=== PATIENT | male | born 1995 | race Caucasian/White ===

== ENCOUNTER 2021-03-09 10:16 | Emergency (ER) | payer BC, OTHER ==
--- NOTE | 2021-03-09 11:13 | CR ---
Right elbow: 3 views of the right elbow were obtained. Comparison: No prior elbow study is available. No joint effusion is seen. Joint spaces are preserved. No fracture, dislocation or other bony abnormality is appreciated. Impression: 1. Nothing acute is seen on 3 view right elbow study. Diagnostic code #1
--- NOTE | 2021-03-09 11:13 | EDM.PDOC ---
ED HPI GENERAL MEDICAL PROBLEM - General Chief Complaint: Upper Extremity Injury/Pain Stated Complaint: R ARM INJURY Time Seen by Provider: 03/09/21 11:00 - History of Present Illness INITIAL COMMENTS - FREE TEXT/NARRATIVE: 25-year-old male presents the emergency room after sustaining a right arm injury. Patient was working on her already and a hydraulic arm caught his arm and put significant pressure on it until the hydraulics could be turned off. The patient has some abrasions associated with this he is unsure when his last tetanus shot was given his age I will assume he is due. Patient denies any significant past medical history. Patient has some discomfort in the affected extremity he has no numbness or tingling in the arm no significant deep pain. Patient denies any other injury associated with this most unfortunate event. Patient denies any significant past medical history. Right Upper Arm Pain Score (Numeric/FACES): 9 - Related Data Allergies Allergy/AdvReac Type Severity Reaction Status Date / Time No Known Allergies Allergy Verified 03/09/21 10:24 Home Meds: Home Meds Albuterol [Proventil HFA] 1 puff INH QID PRN 03/09/21 [History] Past Medical History Respiratory History: Reports: Asthma Endocrine/Metabolic History: Reports: Obesity/BMI 30+ Social & Family History - Tobacco Use Tobacco Use Status *Q: Never Tobacco User - Caffeine Use Caffeine Use: Reports: None - Recreational Drug Use Recreational Drug Use: No Review of Systems - Review of Systems Review Of Systems: See Below Constitutional: Reports: No Symptoms Respiratory: Reports: No Symptoms Cardiovascular: Reports: No Symptoms GI/Abdominal: Reports: No Symptoms ED EXAM, GENERAL - Physical Exam Exam: See Below Exam Limited By: No Limitations General Appearance: Alert, No Apparent Distress Head: Atraumatic, Normocephalic Neck: Normal Inspection, Supple, Non-Tender, Full Range of Motion Respiratory/Chest: No Respiratory Distress, Lungs Clear, Normal Breath Sounds Cardiovascular: Regular Rate, Rhythm, No Edema, No Murmur Extremities: Other (Emanation of the right upper extremity shows good range of motion at the shoulder the patient can fully extend his elbow and supinate and pronate this. His area of injury does not extend to the wrist hand appears normal) Neurological: No Motor/Sensory Deficits (Sensation is entirely intact as is motor function of all digits upper and lower arm albeit some limitation due to discomfort) Course - Vital Signs Last Recorded V/S: Last Vital Signs Temp 36.1 C 03/09/21 10:21 Pulse 68 03/09/21 10:21 Resp 18 03/09/21 10:21 BP 138/88 03/09/21 10:21 Pulse Ox 99 03/09/21 10:21 - Orders/Labs/Meds Orders: Active Orders 24 hr Category Date Time Status Vaccines to be Administered [RC] PER UNIT ROUTINE Care 03/09/21 11:18 Active Durable Medical Equipment for Discharge [DME for Oth 03/09/21 11:19 Ordered Discharge] [COMM] Stat Meds: Medications Discontinued Medications Generic Name Dose Route Start Last Admin Trade Name Freq PRN Reason Stop Dose Admin Diphtheria/Tetanus/Acell Pertussis 0.5 ml 03/09/21 11:17 03/09/21 11:31 Diphtheria,Pertussis(Acell),Tetanus Vaccine 0.5 Ml Syringe IM 03/09/21 11:18 Not Given .ONCE ONE Ibuprofen 800 mg 03/09/21 11:17 03/09/21 11:31 Ibuprofen 800 Mg Tab PO 03/09/21 11:18 800 mg ONETIME ONE Administration - Re-Assessments/Exams Free Text/Narrative Re-Assessment/Exam: 03/09/21 11:20 Per my interpretation x-rays of the forearm elbow and humerus are negative for acute fracture dislocation. However I will get an overread of the elbow. The patient will be placed in a sling and given ibuprofen. He has multiple abrasions on his arm his tetanus will be updated. 03/09/21 12:19 Radiologic interpretation of the above views shows soft tissue swelling no evidence acute fracture dislocation. Departure - Departure Time of Disposition: 12:22 Disposition: Home, Self-Care 01 Clinical Impression: Right forearm injury, Injury of right upper arm - Discharge Information Referrals: PCP,None [Primary Care Provider] - Forms: ED Department Discharge, ED Return to Work/School Form Additional Instructions: Return to the emergency room with any questions problems or worsening symptoms. Return if you develop any numbness or tingling in your hand or forearm. Ibuprofen up to 800 mg 3 times a day with meals. You may also use Tylenol in addition to this. Sepsis Event Note (ED) - Evaluation Sepsis Screening Result: No Definite Risk - Focused Exam Vital Signs: Vital Signs Temp Pulse Resp BP Pulse Ox 03/09/21 10:21 36.1 C 68 18 138/88 99 - My Orders Last 24 Hours: My Active Orders 03/09/21 11:18 Vaccines to be Administered [RC] PER UNIT ROUTINE 03/09/21 11:19 Durable Medical Equipment for Discharge [DME for Discharge] [COMM] Stat - Assessment/Plan Last 24 Hours: My Active Orders 03/09/21 11:18 Vaccines to be Administered [RC] PER UNIT ROUTINE 03/09/21 11:19 Durable Medical Equipment for Discharge [DME for Discharge] [COMM] Stat
[2021-03-09] MEDS ORDERED: Ibuprofen 800 MG Tab PO ONE (11:17)
[2021-03-09] MEDS ORDERED: Diphtheria,Pertussis(Acell),Tetanus Vaccine 0.5 ML Syringe IM ONE (11:17)
--- NOTE | 2021-03-09 11:23 | CR ---
Right humerus: 2 views of the right humerus were obtained. Comparison: No previous right humerus study is available. No fracture or other bony abnormality is appreciated. Impression: 1. Nothing acute is seen on 2 view right humerus study. Diagnostic code #1
--- NOTE | 2021-03-09 11:23 | CR ---
Right forearm: 2 views of the right forearm were obtained. Comparison: No prior right forearm study is available. Soft tissue swelling is noted. No acute fracture or other bony abnormality is appreciated. Impression: 1. Soft tissue swelling. 2. No acute bony abnormality is appreciated. Diagnostic code #2
== END 2021-03-09 12:30 | disposition home or self-care (01) ==
LOC: JD.ED 10:16
DX: S59.911A Unspecified injury of right forearm, initial encounter (principal); J45.909 Unspecified asthma, uncomplicated; E66.9 Obesity, unspecified; Z68.41 Body mass index [BMI] 40.0-44.9, adult; Z79.899 Other long term (current) drug therapy; W23.0XXA Caught, crushed, jammed, or pinched between moving objects, initial encounter; Y92.89 Other specified places as the place of occurrence of the external cause; Y99.0 Civilian activity done for income or pay
CPT/HCPCS: 73060; 73080; 73090; 99283; A9270